=== PATIENT | female | born 1965 | race Caucasian/White ===

== ENCOUNTER → 2024-09-07 | Outpatient (CLI) | payer OTHER ==
[~2024-09-07] MED LIST: ALPR.25 PO; AMIT10 PO; BACL10; BACL20 PO; BUSP10 PO; CITA20 PO; FERR325 PO; FLUSAL2505 IH; FLUSAL2505 INH; HYDACE10B PO; IBUP400 PO; LEVSOD112 PO; LEVSOD125; LORA10 PO; Lopressor 25 mg25 MG PO; Lopressor 50 mg50 MG PO; METH10; METO50 PO; METO50ER PO; MISO200 PO; Naprosyn500 MG PO; QUET100; Synthroid112 MCG PO; Ultram50 MG PO; Ventolin/Prove6.7 GM INH
[2024-09-07 15:32] LABS: Source, Urine Clean Catch
[2024-09-07 16:39] LABS: Appearance, Urine Clear (Clear); Bilirubin, Urine Neg (Neg); Blood, Urine Neg (Neg); Color, Urine Yellow (P-Yellow); Glucose Qualitative, Urine Neg (Neg); Ketones, Urine Neg (Neg); Leukocyte Esterase, Urine Neg (Neg); Nitrite, Urine Neg (Neg); Protein, Urine 2+ (Neg); Specific Gravity, Urine 1.015 (1.003-1.022); Urobilinogen, Urine NORM (Normal)
[2024-09-07 16:54] LABS: Bacteria Rare /hpf; Red Blood Cells, Urine 0-2 /hpf (0-2); Squamous Epithelial Cells Rare /hpf (Few); White Blood Cells, Urine 0-2 /hpf (0-5)
== END | disposition home or self-care (01) ==
LOC: LAB SHORT 15:28 → LAB 15:28
PROVIDERS: Hospitalist
DX: N18.2 Chronic kidney disease, stage 2 (mild) (principal); R82.90 Unspecified abnormal findings in urine
CPT/HCPCS: 81001